=== PATIENT | female | born 1960 ===

== ENCOUNTER 2017-02-22 06:24 | Emergency (ER) | payer OTHER ==
[2017-02-22 06:41] VITALS: TEMP 98.1
[2017-02-22 07:37] LABS: BASO % 0.6 % (0.0-2.0); EOS # 0.1 K/uL (0.0-0.7); HEMATOCRIT 37.6 % (34.0-47.0); LYMPH # 2.2 K/uL (1.0-4.3); LYMPH % 37.3 % (20.0-40.0); MEAN CORPUSCULAR HEMOGLOBIN 29.4 pg (27.0-31.0); MEAN CORPUSCULAR HGB CONC 33.4 g/dL (33.0-37.0); MEAN PLATELET VOLUME 10.5 fL (7.2-11.7); MONO # 0.4 K/uL (0.0-0.8); MONO % 6.3 % (0.0-10.0); NRBC % 0.1 % (0.0-2.0); WHITE BLOOD COUNT 5.8 K/uL (4.8-10.8)
[2017-02-22 07:45] LABS: CHLORIDE 100 mmol/L (98-107)
[2017-02-22 07:46] LABS: POTASSIUM 3.8 mmol/L (3.6-5.2); SODIUM 140 mmol/L (132-148)
[2017-02-22 07:47] LABS: ALB/GLOB RATIO 1.3 (1.0-2.1); ALKALINE PHOSPHATASE 72 U/L (38-126); AST/SGOT 18 U/L (14-36); BILIRUBIN,TOTAL 0.5 mg/dL (0.2-1.3); BLOOD UREA NITROGEN 13 mg/dL (7-17); CARBON DIOXIDE 23 mmol/L (22-30); GFR AFRICAN-AMERICAN > 60; GLUCOSE,RANDOM 101 mg/dL (65-105); TOTAL PROTEIN 7.4 g/dL (6.3-8.3)
[2017-02-22 07:48] LABS: ALT/SGPT 22 U/L (9-52); CALCIUM 8.7 mg/dl (8.6-10.4)
[2017-02-22 07:53] LABS: PARTIAL THROMBOPLASTIN TIME 29 SECONDS (21-34)
--- NOTE | 2017-02-22 08:15 | C.PDOC ---
History Of Present Illness 56-year-old female, PMHx includes Anxiety and Depression, presents to the emergency department with complaints of palpitations. Patient states she was admitted to the hospital last month. Pt had an exercise stress test w/ (+) chest pain, cardiac arrhythmia and ST changes. She was discharged home w/ Lopressor 50mg QD, that she has been taking for one week. States she developed palpitations this morning after she took her daily dose, resulting in her coming to the ED for evaluation. No shortness of breath, or any other associated symptoms. No other complaints at this time. Time Seen by Provider: 02/22/17 07:14 Chief Complaint (Nursing): Palpitations History Per: Patient History/Exam Limitations: no limitations Onset/Duration Of Symptoms: Days Current Symptoms Are (Timing): Still Present Past Medical History Reviewed: Historical Data, Nursing Documentation, Vital Signs Vital Signs: Last Vital Signs Temp 98.1 F 02/22/17 06:34 Pulse 96 H 02/22/17 08:27 Resp 18 02/22/17 08:27 BP 135/63 02/22/17 08:27 Pulse Ox 98 02/22/17 08:27 - Medical History PMH: Anxiety, HTN, Hypercholesterolemia Family History: States: Unknown Family Hx - Social History Hx Tobacco Use: No Hx Alcohol Use: No Hx Substance Use: No - Immunization History Hx Tetanus Toxoid Vaccination: No Hx Influenza Vaccination: No Hx Pneumococcal Vaccination: No Review Of Systems Except As Marked, All Systems Reviewed And Found Negative. Constitutional: Negative for: Fever, Chills Cardiovascular: Positive for: Palpitations. Negative for: Chest Pain Respiratory: Negative for: Shortness of Breath Gastrointestinal: Negative for: Nausea, Vomiting Physical Exam - Physical Exam Appears: Non-toxic, No Acute Distress Skin: Warm, Dry, No Rash Head: Atraumatic, Normacephalic Eye(s): bilateral: Normal Inspection, PERRL Nose: Normal Oral Mucosa: Moist ED Course And Treatment - Laboratory Results Result Diagrams: 02/22/17 07:32 02/22/17 07:32 Lab Interpretation: Normal (trop, bnp, d-dimer neg.) ECG: Interpreted By Me ECG Rhythm: Sinus Tachycardia ECG Interpretation: Normal Rate From EC O2 Sat by Pulse Oximetry: 100 Pulse Ox Interpretation: Normal - Radiology CXR: Interpreted by Me CXR Interpretation: Yes: No Acute Disease Progress Note: equivocal EST without interpretation 02/12 noted and d/w Dr. Melgoza who suggests pt f/u in outpatient [facility] today @ 2PM Reevaluation Time: 08:13 Reassessment Condition: Unchanged Medical Decision Making Medical Decision Making: h/o anxiety and palpitations, intolerant of Lopressor 50 mg PO- causes worstening palpitations which is counterintuitive for this b-russel which usually relieves the symptoms of palpitations ? EST 02/12/17 to be interpreted by Dr. Matthew f/u today in Cardio Clinic. Disposition Doctor Will See Patient In The: Office Counseled Patient/Family Regarding: Studies Performed, Diagnosis - Disposition Referrals: [facility] [Outside] Joseph Melgoza MD [Staff Provider] - Disposition: HOME/ ROUTINE Disposition Time: 08:15 Condition: GOOD Additional Instructions: Please follow-up with Dr. Melgoza in the [facility] outpatient [facility] this afternoon @ 2PM HOLD off on taking Metoprolol until re-evaluated by Furniture [employer]er. Instructions: Palpitations (ED) - Clinical Impression Clinical Impression: Palpitations - Scribe Statement The provider has reviewed the documentation as recorded by the Ednaibrobles Carreon All medical record entries made by the Scribe were at my direction and personally dictated by me. I have reviewed the chart and agree that the record accurately reflects my personal performance of the history, physical exam, medical decision making, and the department course for this patient. I have also personally directed, reviewed, and agree with the discharge instructions and disposition.
[2017-02-22 08:27] VITALS: BP 135/63; PULSE 96; RESP 18
--- NOTE | 2017-02-22 08:57 | RAD ---
PROCEDURE: CHEST RADIOGRAPH, 1 VIEW HISTORY: SOB COMPARISON: None available. FINDINGS: LUNGS: Clear. PLEURA: No pneumothorax or pleural fluid seen. CARDIOVASCULAR: Normal. OSSEOUS STRUCTURES: No significant abnormalities. VISUALIZED UPPER ABDOMEN: Normal. OTHER FINDINGS: None. IMPRESSION: No active disease.
[2017-02-22 11:28] VITALS: O2SAT 100
--- NOTE | 2017-02-22 12:48 | CARD ---
APPROVED REPORT EKG Measurement Heart [id number] CO [id number] <Conclusion> Sinus tachycardia Nonspecific ST abnormality Abnormal ECG
== END 2017-02-22 08:31 | disposition home or self-care (01) ==
LOC: C.ER 06:24
DX: R00.2 Palpitations (principal)